=== PATIENT | male | born 1950 | race Caucasian/White ===

== ENCOUNTER 2016-09-02 20:28 | Observation (INO) | payer BC, OTHER ==
[2016-09-02] MEDS ORDERED: IPRATROPIUM/ALBUTEROL 3 ML DEYVIAL IH ONE (20:46)
--- NOTE | 2016-09-02 21:34 | EDPHY ---
HPI/HX/ROS/PE/MDM Narrative: CHIEF COMPLAINT: Cough HPI: The patient is a 65 y/o male, with a history of COPD, arriving with his family member complaining of a gradually worsening cough since diagnosis of pneumonia 3 weeks ago. He was treated with a Zpack, but feels like he is getting worse. He denies fever or chest pain. He is currently staying at altitude around 8500' while visiting daughter near [place]; he is from [place]. He has used his inhaler without any improvement. He denies cardiac history, diabetes, or home O2 use. REVIEW OF SYSTEMS: Aside from elements discussed in the HPI, a comprehensive 10-point review of systems was reviewed and is negative. PMH: COPD, back fusions SOCIAL HISTORY: Visiting from [place]. Family member at bedside. PHYSICAL EXAM: General:Patient is alert, in no acute distress. 86% SpO2 on room air. ENT:Eyes are normal to inspection. ENT inspection normal. Neck: Normal inspection. Full range of motion. Respiratory:No respiratory distress. Diminished air movement with scattered mild rhonchi. Cardiovascular: Regular rate and rhythm. Strong peripheral pulses. Normal cap refill. Abdomen:The abdomen is nontender to palpation. There are no peritoneal signs. There are normal bowel sounds. Back: Normal to inspection. No tenderness to palpation. Skin: Normal color. No rash. Warm and dry. Extremities: Normal appearance. Full range of motion. Neuro: Oriented x3. Normal motor function. Normal sensory function. ED Course: Duo neb, prednisone, and azithromycin administered. Study: Chest x-ray Indication: Cough, hypoxemia Results: Chest x-ray was obtained. The results of the study are 1. Suspect airways disease. 2. Basilar opacities are probably atelectasis. 3. Possible small left upper lobe nodule with comparison with previous studies or follow-up examination suggested as clinically directed. 4. See above report for additional findings. The study was read by the radiologist, Dr. Huang. I viewed the images myself on the PACS system. Trialed patient off O2. His room air SpO2 is 85%. Patient will require admission for COPD exacerbation and hypoxemia. 2248: Spoke with Dr. Mak, hospitalist. She accepts admission. MDM: This patient presents with what sounds like COPD exacerbation, possible early pneumonia. The patient is significantly hypoxemic on exam here, and is staying with his daughter who was at an even higher altitude. As such, I think he requires admission to the hospital for supplemental oxygen therapy, IV antibiotics and further workup. I see no evidence of severe sepsis, septic shock, pulmonary embolism, acute coronary syndrome. - Data Points Laboratory Results: Laboratory Results 09/02/16 20:57 09/02/16 20:57 09/02/16 09/02/16 20:57 20:57 WBC 11.36 10^3/uL H 10^3/uL (3.80-9.50) RBC 4.76 10^6/uL 10^6/uL (4.40-6.38) Hgb 15.0 g/dL g/dL (13.7-17.5) Hct 44.5 % % (40.0-51.0) MCV 93.5 fL fL (81.5-99.8) MCH 31.5 pg pg (27.9-34.1) MCHC 33.7 g/dL g/dL (32.4-36.7) RDW 12.9 % % (11.5-15.2) Plt Count 257 10^3/uL 10^3/uL (150-400) MPV 10.3 fL fL (8.7-11.7) Neut % (Auto) 72.8 % % (39.3-74.2) Lymph % (Auto) 15.6 % % (15.0-45.0) [place] % (Auto) 8.8 % % (4.5-13.0) Eos % (Auto) 2.0 % % (0.6-7.6) Baso % (Auto) 0.4 % % (0.3-1.7) Nucleat RBC Rel Count 0.0 % % (0.0-0.2) Absolute Neuts (auto) 8.26 10^3/uL H 10^3/uL (1.70-6.50) Absolute Lymphs (auto) 1.77 10^3/uL 10^3/uL (1.00-3.00) Absolute Monos (auto) 1.00 10^3/uL H 10^3/uL (0.30-0.80) Absolute Eos (auto) 0.23 10^3/uL 10^3/uL (0.03-0.40) Absolute Basos (auto) 0.05 10^3/uL 10^3/uL (0.02-0.10) Absolute Nucleated RBC 0.00 10^3/uL 10^3/uL (0-0.01) Immature Gran % 0.4 % % (0.0-1.1) Immature Gran # 0.05 10^3/uL 10^3/uL (0.00-0.10) Sodium 137 mEq/L mEq/L (134-144) Potassium 3.8 mEq/L mEq/L (3.5-5.2) Chloride 103 mEq/L mEq/L (97-110) Carbon Dioxide 25 mEq/l mEq/l (22-31) Anion Gap 9 mEq/L mEq/L (8-16) BUN 18 mg/dL mg/dL (7-23) Creatinine 0.8 mg/dL mg/dL (0.7-1.3) Estimated GFR > 60 Glucose 107 mg/dL H mg/dL (70-100) Calcium 9.3 mg/dL mg/dL (8.5-10.4) Medications Given: Discontinued Medications Albuterol (Proventil Neb) 3 ml IH EDNOW ONE Stop: 09/02/16 21:39 Last Admin: 09/02/16 21:42 Dose: 3 ml Albuterol/Ipratropium (Duoneb) 3 ml IH EDNOW ONE Stop: 09/02/16 20:47 Last Admin: 09/02/16 20:51 Dose: 3 ml General Time Seen by Provider: 09/02/16 21:20 Initial Vital Signs: Initial Vital Signs Temperature (C) 37.4 C 09/02/16 20:39 Heart Rate 92 09/02/16 20:39 Respiratory Rate 24 H 09/02/16 20:39 Blood Pressure 109/80 09/02/16 20:39 O2 Sat (%) 86 L 09/02/16 20:39 O2 Delivery Mode Nasal Cannula O2 (L/minute) 2 Allergies/Adverse Reactions: NSAIDS (Non-Steroidal Anti-Inflamma Allergy (Verified 09/02/16 20:37) Home Medications: Medication Instructions Recorded Acetaminophen [Tylenol 325mg (*)] 650 mg PO Q6 PRN 09/02/16 Albuterol [Proventil Inhaler HFA 1 - 2 puffs IH Q4H PRN 09/02/16 (*)] Fluticasone Nasal [Flonase Nasal 1 sprays NASAL DAILY 09/02/16 [place]] Fluticasone/Salmeter 500/50Mcg 1 puffs IH BID 09/02/16 [Advair 500/50 (*)] Lansoprazole [Prevacid] 30 mg PO BID 09/02/16 Tiotropium Inhaler [Spiriva 18 mcg IH DAILY 09/02/16 Handihaler] levOFLOXACIN [levAQUIN (*)] 750 mg PO DAILY AT 10AM #4 tab 09/03/16 predniSONE 40 mg PO DAILY #8 tablet 09/03/16 Departure - Departure Disposition: [facility] Inpatient Acute Clinical Impression: Hypoxemia, Chronic obstructive pulmonary disease with acute exacerbation Condition: Fair Report Scribed for: James Melendez Report Scribed by: Milla Gardner Date of Report: 09/02/16 Time of Report: 21:36 Physician Review and Approval Statement: Portions of this note were transcribed by an ED scribe. I personally performed the history, physical exam, and medical decision making; and confirm the accuracy of the information in the transcribed note.
[2016-09-02] MEDS ORDERED: ALBUTEROL 3 ML DEYVIAL IH ONE (21:38)
[2016-09-02 21:45] LABS: % IMMATURE GRANULYOCYTES 0.4 % (0.0-1.1); ABSOLUTE IMMATURE GRANULOCYTES 0.05 10^3/uL (0.00-0.10); ADD DIFF? NO; ADD MORPH? NO; ADD SCAN? NO; ATYPICAL LYMPHOCYTE FLAG 20 (0-99); FRAGMENT RBC FLAG 0 (0-99); HEMATOCRIT 44.5 % (40.0-51.0); LEFT SHIFT FLG 0 (0-99); LIPEMIA HEMOLYSIS FLAG 80 (0-99); MEAN CELL HEMOGLOBIN 31.5 pg (27.9-34.1); MEAN CELL HEMOGLOBIN CONCENTR. 33.7 g/dL (32.4-36.7); MEAN CELL VOLUME 93.5 fL (81.5-99.8); MEAN PLATELET VOLUME 10.3 fL (8.7-11.7); PLATELET CLUMPS FLAG 0 (0-99); PLATELET COUNT 257 10^3/uL (150-400); RED BLOOD CELL COUNT 4.76 10^6/uL (4.40-6.38); RED CELL DISTRIBUTION WIDTH 12.9 % (11.5-15.2)
[2016-09-02 21:54] LABS: ANION GAP 9 mEq/L (8-16); CALCIUM 9.3 mg/dL (8.5-10.4); CARBON DIOXIDE 25 mEq/l (22-31); CHLORIDE 103 mEq/L (97-110); CREATININE 0.8 mg/dL (0.7-1.3); GLOMERULAR FILTRATION RATE > 60; GLUCOSE 107 mg/dL (70-100); POTASSIUM 3.8 mEq/L (3.5-5.2); SODIUM 137 mEq/L (134-144)
[2016-09-02] MEDS ORDERED: AZITHROMYCIN IV 500 MG in D5W 250 ML IV ONE (22:43)
[2016-09-02] MEDS ORDERED: predniSONE 20 MG TAB PO ONE (22:43)
[2016-09-03] MEDS ORDERED: MAG HYDROX/AL HYDROX/SIMETH 30 ML UDCUP PO PRN (00:09)
[2016-09-03] MEDS ORDERED: ALBUTEROL 3 ML DEYVIAL IH PRN (00:09)
[2016-09-03] MEDS ORDERED: ONDANSETRON DISINTEGRATING 4 MG TAB PO PRN (00:09)
[2016-09-03] MEDS ORDERED: ACETAMINOPHEN 325 MG TAB PO PRN ×2 (00:09→00:11)
[2016-09-03] MEDS ORDERED: NICOTINE POLACRILEX 2 MG GUM B PRN (00:12)
[2016-09-03 00:41] VITALS: RESP 16
[2016-09-03] MEDS: NICOTINE 21 MG/24 HR PATCH TD SCH ×2 (00:41→08:54)
--- NOTE | 2016-09-03 00:55 | PDEACUHP ---
History and Physical - Chief Complaint shortness of breath, cough - History of Present Illness 65 yo M with PMH of COPD and recent treatment for PNA, currently visiting from [place] and presenting with acute shortness of breath, cough and increased sputum production. He notes that this winter he has been sick twice with respiratory infections. Most recently, approximately 3 weeks ago, while in [place] he was evaluated for similar sxs and found to have PNA as well as copd exacerbation. He was treated with a Z-pack as well as a short course of prednisone. He notes he initially felt better, but then over the last 4-5 days he began to have more cough and sputum again. Today while up at his daughters house in [place] at approximately 8000 foot elevation, he became acutely much more short of breath and was noted by his daughter to look "blankenship". They elected to bring him to the ER where he was found to have O2 sats of 85% on RA. He is a current daily smoker, but is planning on quitting. He has no other associated complaints. History Information - Allergies/Home Medication List Allergies/Adverse Reactions: NSAIDS (Non-Steroidal Anti-Inflamma Allergy (Verified 09/02/16 20:37) Home Medications: Acetaminophen [Tylenol 325mg (*)] 650 mg PO Q6 PRN 09/02/16 [Last Taken Unknown] Albuterol [Proventil Inhaler HFA (*)] 1 - 2 puffs IH Q4H PRN 09/02/16 [Last Taken Unknown] Fluticasone Nasal [Flonase Nasal [place] (RX)] 1 sprays NASAL DAILY 09/02/16 [ Last Taken 09/02/16] Fluticasone/Salmeter 500/50Mcg [Advair 500/50 (*)] 1 puffs IH BID 09/02/16 [ Last Taken 09/02/16 17:00] Lansoprazole [Prevacid] 30 mg PO BID 09/02/16 [Last Taken 09/02/16] Tiotropium Inhaler [Spiriva Handihaler] 18 mcg IH DAILY 09/02/16 [Last Taken 03/13] I have personally reviewed and updated: family history, medical history, social history, surgical history - Past Medical History COPD, GERD Additional medical history: chronic back pain--previously on multiple opiate pain medications but has since weaned himself off of all of those - Surgical History Reports: no pertinent surgical hx - Family History Positive for: non-pertinent - Social History Smoking Status: Current every day smoker (plans to quit) Alcohol Use: Occasionally Drug Use: None Additional social history: lives in [place] currently but daughter lives in [place] Review of Systems ROS: 10pt was reviewed & negative except for what was stated in HPI & below Physical Exam Temp Pulse Resp BP Pulse Ox 36.8 C 78 16 110/69 92 09/03/16 00:39 09/03/16 00:39 09/03/16 00:39 09/03/16 00:39 09/03/16 00:39 O2 (L/minute) 2 Constitutional: no apparent distress, appears nourished Eyes: PERRL, anicteric sclera Ears, Nose, Mouth, Throat: moist mucous membranes, hearing normal Cardiovascular: regular rate and rhythym, no murmur, rub, or gallop, No edema Respiratory: no respiratory distress, reduced air movement (almost no breath sounds present bilaterally) Gastrointestinal: normoactive bowel sounds, soft, non-tender abdomen Genitourinary: no bladder tenderness Skin: warm, normal color Musculoskeletal: full muscle strength, no muscle tenderness Neurologic: AAOx3 Psychiatric: interacting appropriately, not anxious, not encephalopathic Lab Data & Imaging Review 09/02/16 20:57 09/02/16 20:57 WBC 11.36 10^3/uL (3.80-9.50) H 09/02/16 20:57 RBC 4.76 10^6/uL (4.40-6.38) 09/02/16 20:57 Hgb 15.0 g/dL (13.7-17.5) 09/02/16 20:57 Hct 44.5 % (40.0-51.0) 09/02/16 20:57 MCV 93.5 fL (81.5-99.8) 09/02/16 20:57 MCH 31.5 pg (27.9-34.1) 09/02/16 20:57 MCHC 33.7 g/dL (32.4-36.7) 09/02/16 20:57 RDW 12.9 % (11.5-15.2) 09/02/16 20:57 Plt Count 257 10^3/uL (150-400) 09/02/16 20:57 MPV 10.3 fL (8.7-11.7) 09/02/16 20:57 Neut % (Auto) 72.8 % (39.3-74.2) 09/02/16 20:57 Lymph % (Auto) 15.6 % (15.0-45.0) 09/02/16 20:57 [place] % (Auto) 8.8 % (4.5-13.0) 09/02/16 20:57 Eos % (Auto) 2.0 % (0.6-7.6) 09/02/16 20:57 Baso % (Auto) 0.4 % (0.3-1.7) 09/02/16 20:57 Nucleat RBC Rel Count 0.0 % (0.0-0.2) 09/02/16 20:57 Absolute Neuts (auto) 8.26 10^3/uL (1.70-6.50) H 09/02/16 20:57 Absolute Lymphs (auto) 1.77 10^3/uL (1.00-3.00) 09/02/16 20:57 Absolute Monos (auto) 1.00 10^3/uL (0.30-0.80) H 09/02/16 20:57 Absolute Eos (auto) 0.23 10^3/uL (0.03-0.40) 09/02/16 20:57 Absolute Basos (auto) 0.05 10^3/uL (0.02-0.10) 09/02/16 20:57 Absolute Nucleated RBC 0.00 10^3/uL (0-0.01) 09/02/16 20:57 Immature Gran % 0.4 % (0.0-1.1) 09/02/16 20:57 Immature Gran # 0.05 10^3/uL (0.00-0.10) 09/02/16 20:57 Sodium 137 mEq/L (134-144) 09/02/16 20:57 Potassium 3.8 mEq/L (3.5-5.2) 09/02/16 20:57 Chloride 103 mEq/L (97-110) 09/02/16 20:57 Carbon Dioxide 25 mEq/l (22-31) 09/02/16 20:57 Anion Gap 9 mEq/L (8-16) 09/02/16 20:57 BUN 18 mg/dL (7-23) 09/02/16 20:57 Creatinine 0.8 mg/dL (0.7-1.3) 09/02/16 20:57 Estimated GFR > 60 09/02/16 20:57 Glucose 107 mg/dL (70-100) H 09/02/16 20:57 Calcium 9.3 mg/dL (8.5-10.4) 09/02/16 20:57 Visualized and Interpreted Chest x-ray results: Yes Chest X-Ray results: other (airways disease, bilateral atelectasis and ? YANDEL nodule) Assessment & Plan Assessment: 65 yo M with PMH of COPD admitted with acute hypoxic respiratory failure, copd exacerbation # acute hypoxic respiratory failure: 85% on RA here in [place], patient residing currently in [place] at 8000 feet. 2/2 copd exacerbation as next. Will likely need to dc on supplemental o2 at least for a short term, patient amenable to that plan. # chronic copd with acute exacerbation: significantly decreased breath sounds throughout, will continue scheduled neb treatments overnight as well as oral pred. Was given azithro in ER but will transition to levofloxacin given recently completed course of azith and ? concurrent bronchopneumonia as next. # ? bronchopneumonia: lingering sxs with recent dx of pna s/p course of azithro. Changed to levofloxacin. Significant airways disease on CXR and difficult to exlude concurrent bronchopneumonia # leukocytosis: in setting of above, no other suggestion of sepsis # tobacco use: patient does feel ready and eager to quit, nicotine patch and gum given, he would like more information prior to dc for support in quitting # dispo: observation status, likely will need < 48 hours stay for eval/mgmt of above. Patient new to my care. Care plan reviewed with ER including plans for tx of copd. Further hx obtained from patients daughter present at bedside.
[2016-09-03] MEDS: IPRATROPIUM/ALBUTEROL 3 ML DEYVIAL IH SCH ×2 (05:52→08:15)
[2016-09-03] MEDS ORDERED: FLUTICASONE NASAL 120 SPRAYS/16 GM MDI EACHNARE SCH (09:00)
[2016-09-03] MEDS ORDERED: PANTOPRAZOLE SODIUM 40 MG TAB PO SCH (09:00)
[2016-09-03] MEDS ORDERED: LANSOPRAZOLE SUSP 3 MG/ML UDSYR (Peds) PO SCH (09:00)
[2016-09-03] MEDS ORDERED: FLUTICASONE/SALMETER 500/50MCG DISKUS IH SCH (09:00)
[2016-09-03] MEDS ORDERED: predniSONE 20 MG TAB PO SCH (09:00)
[2016-09-03 14:17] VITALS: BP 100/65; PULSE 70; TEMP 97.5; O2SAT 93
--- NOTE | 2016-09-03 14:31 | GDS ---
[f rep st] DISCHARGE SUMMARY DISCHARGE DIAGNOSES: 1. Acute hypoxemic respiratory failure. 2. Chronic obstructive pulmonary disease exacerbation. 3. Possible community-acquired pneumonia. 4. Tobacco abuse. HOSPITAL COURSE AND STAY BY PROBLEM: Acute respiratory failure in the setting of COPD exacerbation, possible pneumonia: The patient was placed on observation where he was treated with bronchodilator s, levofloxacin and prednisone. On day of discharge, he tells me he feels much better. He will be discharged on home oxygen and was given prescriptions to complete a 5-day course of prednisone and l evofloxacin. He is instructed to stop smoking. PHYSICAL EXAMINATION: VITAL SIGNS: On day of discharge, blood pressure 98/65, pulse 78, respirator y rate 16, O2 saturation 84% on room air. GENERAL: No acute distress. HEART: S1, S2. LUNGS: Cl ear with some scattered wheezes. ABDOMEN: Soft. EXTREMITIES: No edema. DIAGNOSTIC STUDIES: Chest x-ray was reviewed showing a possible small left upper lobe nodule. DISCHARGE MEDICATIONS: Please refer to discharge medication reconciliation in [facility] for full det ails. Below is a preliminary list. New medications on hospital discharge: Levaquin 750 mg daily to complete 5 days, prednisone 40 mg d aily to complete 5 days. All other home medications were continued at his usual home dosages. DISCHARGE INSTRUCTIONS: The patient will be discharged from the hospital where he should follow up with his primary care provider upon returning back to [place]. He should have followup of his [facility] x-ray to further evaluate this possible small left upper lobe nodule. /[id number]/MODL
== END 2016-09-03 14:18 | disposition home or self-care (01) ==
LOC: F1N 23:43
PROVIDERS: ADMIT Internal Medicine; ATTEND Family Medicine
DX: J96.01 Acute respiratory failure with hypoxia (principal); J44.1 Chronic obstructive pulmonary disease with (acute) exacerbation; R91.8 Other nonspecific abnormal finding of lung field; F17.210 Nicotine dependence, cigarettes, uncomplicated; Z98.1 Arthrodesis status
CPT/HCPCS: 71020; G0378; J0456; 96365

== ENCOUNTER 2016-09-09 18:55 | Emergency (ER) | payer OTHER ==
[2016-09-09 19:38] VITALS: RESP 18; O2SAT 94
--- NOTE | 2016-09-09 20:02 | EDPHY ---
H & P Time Seen by Provider: 09/09/16 19:55 HPI/ROS: CHIEF COMPLAINT: Fever HISTORY OF PRESENT ILLNESS: This patient is a 65 year old male with history of COPD who presents to the Emergency Department complaining of acute fever beginning today. He has been intermittently sick over the past few months with dyspnea secondary to bronchiolitis and possible pneumonia. He has been treated with multiple courses of antibiotics for his respiratory symptoms. Last week, he was seen in the Emergency Department and was admitted for hypoxemia. He was discharged home on prednisolone and Levaquin; he completed the five day course of antibiotics on Tuesday. He reports that he felt much better on Tuesday and yesterday. Today, he experience acute fever, headache, and reports that he feels flushed. He does report a productive cough but denies significant dyspnea. He continues to use his Advair inhaler twice daily. REVIEW OF SYSTEMS: Constitutional: +fever, no chills Eyes: No visual changes ENT: No sore throat Respiratory: +cough, +shortness of breath, improved Cardiac: No chest pain Gastrointestinal: No nausea, no vomiting, no abdominal pain Genitourinary: No hematuria, no dysuria Musculoskeletal: No leg pain or swelling Skin: No rash Neurological: +headache, no numbness, no weakness Psychiatric: No depression Past Medical/Surgical History: COPD, GERD. Social History: Visiting from [place]; staying with daughter in [place]. Quit smoking since last visit on 09/03/16 and has been using nicotine gum. Smoking Status: Former smoker Physical Exam: General Appearance: Alert, nontoxic-appearing Eyes: Pupils equal and round, no conjunctival pallor or injection ENT, Mouth: Mucous membranes moist Neck: Normal inspection Respiratory: Lungs are clear to auscultation, rales in left upper lung field Cardiovascular: Regular rate and rhythm Gastrointestinal: Abdomen is soft and non- tender Neurological: A&O, nonfocal, normal gait Skin: Warm and dry, no rash Extremities: Nontender, no pedal edema Psychiatric: Mood and affect normal Constitutional: Initial Vital Signs Temperature (C) 38.0 C 09/09/16 19:33 Heart Rate 92 09/09/16 19:33 Respiratory Rate 18 09/09/16 19:33 Blood Pressure 119/75 09/09/16 19:33 O2 Sat (%) 94 09/09/16 19:33 O2 Delivery Mode Room Air O2 (L/minute) 1.5 Allergies/Adverse Reactions: NSAIDS (Non-Steroidal Anti-Inflamma Allergy (Verified 09/02/16 20:37) Home Medications: Medication Instructions Recorded Acetaminophen [Tylenol 325mg (*)] 650 mg PO Q6 PRN 09/02/16 Albuterol [Proventil Inhaler HFA 1 - 2 puffs IH Q4H PRN 09/02/16 (*)] Fluticasone Nasal [Flonase Nasal 1 sprays NASAL DAILY 09/02/16 [place]] Fluticasone/Salmeter 500/50Mcg 1 puffs IH BID 09/02/16 [Advair 500/50 (*)] Lansoprazole [Prevacid] 30 mg PO BID 09/02/16 Tiotropium Inhaler [Spiriva 18 mcg IH DAILY 09/02/16 [place]hal[place]] levOFLOXACIN [levAQUIN (*)] 750 mg PO DAILY AT 10AM #4 tab 09/03/16 predniSONE 40 mg PO DAILY #8 tablet 09/03/16 levOFLOXACIN [levAQUIN (RX)] 750 mg PO DAILY #9 tab 09/09/16 predniSONE 1 tab PO DAILY #15 tab 09/09/16 Medical Decision Making - Diagnostics Imaging: Study: X-ray of the chest Indication: Dyspnea Results: X-ray of the chest was obtained. The results of the study are: no infiltrate. The study was read by the radiologist. I viewed the images myself on the PACS system. ED Course/Re-evaluation: This patient presents with recurrent fever and cough after recent admission. Will proceed with repeat chest x-ray. 650mg PO Tylenol administered for fever. 2036: I discussed imaging results with the patient. 750mg PO Levaquin and 60mg PO prednisone administered. I recommended to the patient that he follow-up with a chronometer tester while here in [place] for further evaluation and long-term treatment options. I will start him on a longer course of Levaquin as he seems to have improved with prior 5- day course. He will also be given a script for prednisone. He understands customary return precautions and will be discharged home in good condition. Differential Diagnosis: Differential diagnosis includes does not limited to pulmonary embolism, empyema , pulmonary edema. - Data Points Medications Given: Discontinued Medications Acetaminophen (Tylenol) 650 mg PO EDNOW ONE Stop: 09/09/16 20:08 Last Admin: 09/09/16 20:42 Dose: 650 mg Levofloxacin (Levaquin) 750 mg PO EDNOW ONE PRN Reason: Protocol Stop: 09/09/16 20:37 Last Admin: 09/09/16 20:52 Dose: 750 mg Prednisone (Prednisone) 60 mg PO EDNOW ONE Stop: 09/09/16 20:37 Last Admin: 09/09/16 20:52 Dose: 60 mg Departure - Departure Disposition: Home, Routine, Self-Care Clinical Impression: Acute bronchitis Qualifiers: Bronchitis organism: unspecified organism Qualified Code(s): J20.9 - Acute bronchitis, unspecified Condition: Fair Instructions: Acute Bronchitis (ED) Additional Instructions: 1. Take the full course of Levaquin as prescribed. 2. Take prednisone as directed. 3. Take 650mg Tylenol ever 4-6 hours as needed for fever. 4. Call to schedule a follow-up with a chronometer tester as soon as possible. We have referred you to Dr. Souleymane Jones. 5. Return to the Emergency Department with worsening shortness of breath, uncontrollable high fever, or other serious concerns. Referrals: Souleymane Jones MD [Medical Doctor] - As per Instructions Prescriptions: levOFLOXACIN [levAQUIN (RX)] 750 mg PO DAILY #9 tab predniSONE 1 tab PO DAILY #15 tab Report Scribed for: Darling Christy Report Scribed by: Yecenia Stevens Date of Report: 09/09/16 Time of Report: 19:58 Physician Review and Approval Statement: 09/09/16 19:57 Portions of this note were transcribed by a medical laboratory technologist. I personally performed a history, physical exam, medical decision making, and confirmed accuracy of information the transcribed note.
[2016-09-09] MEDS ORDERED: ACETAMINOPHEN 325 MG TAB PO ONE (20:07)
[2016-09-09] MEDS ORDERED: predniSONE 20 MG TAB PO ONE (20:36)
[2016-09-09 21:02] VITALS: BP 107/76; PULSE 95; TEMP 99.5
== END 2016-09-09 21:02 | disposition home or self-care (01) ==
DX: J44.0 Chronic obstructive pulmonary disease with (acute) lower respiratory infection (principal); Z87.891 Personal history of nicotine dependence